=== PATIENT | female | born 1960 | race Caucasian/White ===

== ENCOUNTER 2021-01-11 10:55 | Emergency (ER) | payer MEDICAID ==
[~2021-01-11] VITALS: Ht 152.4 cm; Wt 72.7 kg
[~2021-01-11 10:55] MED LIST: CLON0.5T4 PO; METF-446 PO; THEO200C PO
[2021-01-11 10:59] VITALS: BP 130/71
[2021-01-11] MEDS ORDERED: MONT-35 PO (11:08)
[2021-01-11] MEDS ORDERED: CARV12 PO (11:08)
[2021-01-11] MEDS ORDERED: ATOR40TA28 PO (11:08)
[2021-01-11] MEDS ORDERED: BUSP5TAB20 PO (11:08)
[2021-01-11] MEDS ORDERED: CELE100 PO (11:08)
[2021-01-11] MEDS ORDERED: OMEP20 PO (11:08)
[2021-01-11] MEDS ORDERED: LISI-893 PO (11:08)
[2021-01-11] MEDS ORDERED: OXYB5 PO (11:08)
[2021-01-11] MEDS ORDERED: EMPA10TA PO (11:08)
[2021-01-11] MEDS ORDERED: GLIP5 PO (11:08)
[2021-01-11] MEDS ORDERED: CLON-820 PO (11:08)
[2021-01-11] MEDS ORDERED: SITA100 PO (11:08)
[2021-01-11] MEDS ORDERED: CARB100 PO (11:08)
[2021-01-11] MEDS ORDERED: FENO160T14 PO (11:08)
[2021-01-11] MEDS ORDERED: CETI1SOL83 PO (11:08)
[2021-01-11] MEDS ORDERED: METF-960 PO (11:08)
[2021-01-11] MEDS ORDERED: CLOP75TA60 PO (11:08)
== END 2021-01-11 12:01 | disposition home or self-care (01) ==
LOC: EMS 11:00
DX: B86 Scabies (principal); J45.909 Unspecified asthma, uncomplicated; F32.9 Major depressive disorder, single episode, unspecified; E11.9 Type 2 diabetes mellitus without complications; E78.00 Pure hypercholesterolemia, unspecified; Z79.899 Other long term (current) drug therapy; Z79.84 Long term (current) use of oral hypoglycemic drugs
CPT/HCPCS: 82962; 99282